=== PATIENT | female | born 1980 | race Two or more races ===

== ENCOUNTER 2019-03-24 19:24 | Emergency (ER) | payer SELFPAY ==
[~2019-03-24] VITALS: Ht 157.5 cm; Wt 42.0 kg
--- NOTE | 2019-03-24 19:49 | NUR ---
PT. AMBULATORY TO ER 40 AT THIS TIME. SEAMARYAM GAIT. ASSUMING CARE OF PT.
--- NOTE | 2019-03-24 19:50 | NUR ---
PT. AMBULATORY TO X-RAY AT THIS TIME.
[2019-03-24] MEDS ORDERED: KETOROLAC 30 MG/1 ML IM ONE (20:30)
[2019-03-24] MEDS ORDERED: KETOROLAC 30 MG/1 ML ONE (20:31)
[2019-03-24 20:57] LABS: BASOPHILS # (AUTO) 0.04 x10^3/uL (0-0.1); BASOPHILS % (AUTO) 1 % (0-1); EOSINOPHILS # (AUTO) 0.13 x10^3/uL (0-0.4); EOSINOPHILS % (AUTO) 2 % (1-7); LYMPHOCYTES # (AUTO) 1.71 x10^3/uL (1-3.4); LYMPHOCYTES % (AUTO) 26 % (22-44); MD NO; MEAN CORPUSCULAR HEMOGLOBIN 31.7 pg (27.0-34.8); MEAN CORPUSCULAR HGB CONC 33.2 g/dL (32.4-35.8); MEAN CORPUSCULAR VOLUME 95.7 fL (80-100); MONOCYTES # (AUTO) 0.46 x10^3/uL (0.2-0.8); MONOCYTES % (AUTO) 7 % (2-9); NEUTROPHILS # (AUTO) 4.14 x10^3/uL (1.8-6.8); NEUTROPHILS % (AUTO) 64 % (42-75); PLATELET COUNT 229 x10^3/uL (130-400); RED BLOOD COUNT 4.03 x10^6/uL (3.82-5.3); RED CELL DISTRIBUTION WIDTH 12.9 % (9.6-15.2)
[2019-03-24 21:08] LABS: ALBUMIN 4.2 g/dL (3.4-5.0); ANION GAP 9 mmol/L (5-15); CALCIUM 9.1 mg/dL (8.5-10.1); CHLORIDE 107 mmol/L (98-107); CREATININE 0.71 mg/dL (0.55-1.02)
--- NOTE | 2019-03-24 21:13 | NUR ---
PT. STATES "THE HEWITT IS GONE BUT THE BURNING IS STILL THERE".
--- NOTE | 2019-03-24 21:14 | NUR ---
CHART UP FOR REHCECK BY TAMELA.
[2019-03-24 21:53] VITALS: BP 110/69
== END 2019-03-24 21:56 | disposition home or self-care (01) ==
LOC: ED 21:00
DX: G44.211 Episodic tension-type headache, intractable (principal)
CPT/HCPCS: 36415; 70450; 72050; 80048; 82040; 85025; 96372; 99284; J1885